=== PATIENT | female | born 1935 | race Hispanic/Latino ===

== ENCOUNTER → 2021-09-07 | Outpatient (CLI) | payer MEDICARE ==
[~2021-09-07] MED LIST: ARICEPT5 MG PO; ASPIR 8181 MG PO; BYSTOLIC10 MG PO; CALCIUM PO; CENTRUM SILVER1 EAC3 PO; DEXILANT60 MG PO; FISH OIL 1,0001 EAC2 PO; LIPITOR10 MG PO; LOVASTATIN; LYRICA50 MG PO; METHYLPRED4 MG; PANTOPRAZOLE SO40 MG PO; PROLIA60 MG/1 ML INJ; TRAMADOL HCL50 MG; TURMERIC538 MG PO; VIT D3 PO; Z.0.BYSTOLIC10 MG; Z.0.NEXIUM40 M1; Z.0.ZITHROMAX250 MG; Z.0.ZOLOFT50 MG PO; [UNRECOGNIZED DRUG - OTHER]
== END ==
LOC: RAD 10:30
PROVIDERS: ATTEND Family Medicine
DX: J81.0 Acute pulmonary edema (principal)
CPT/HCPCS: 71046

== ENCOUNTER → 2021-09-14 | Outpatient (CLI) | payer MEDICARE | LOC: RAD 09:41 | PROVIDERS: ATTEND Nurse Practitioner Family | DX: R50.9 Fever, unspecified (principal); R22.43 Localized swelling, mass and lump, lower limb, bilateral | CPT/HCPCS: 71046 ==

== ENCOUNTER → 2021-11-13 | Outpatient (CLI) | payer MEDICARE | LOC: MRI 07:24 | PROVIDERS: ATTEND Physician Assistant | DX: M19.012 Primary osteoarthritis, left shoulder (principal); M25.812 Other specified joint disorders, left shoulder ==

== ENCOUNTER 2021-12-07 18:33 | Inpatient (IN) | payer MEDICARE, OTHER ==
[~2021-12-07] VITALS: Ht 152.4 cm; Wt 69.9 kg
[2021-12-07] MEDS ORDERED: SODIUM CHLORIDE 0.9% 1000ML 1,000 ML IV ONE ×2 (19:15→20:15)
[2021-12-07] MEDS ORDERED: SODIUM CHLORIDE FLUSH 10 ML SYR INJ PRN (19:30)
[2021-12-07] MEDS ORDERED: ONDANSETRON HCL INJ 2MG/ML 2ML 2 MG/ML VIAL IV PRN (19:30)
[2021-12-07 19:52] LABS: BASOPHILS # (AUTO) 0.1 (0.0-0.1); BASOPHILS % 0.4 % (0.0-1.0); EOSINOPHILS # (AUTO) 0.2 (0.0-0.4); EOSINOPHILS % 1.3 % (0.0-6.0); HEMATOCRIT 23.8 % (34.2-44.1); HEMOGLOBIN 7.2 g/dL (12.0-16.0); LYMPHOCYTES # (AUTO) 2.3 (1.0-3.2); MEAN CORPUSCULAR HEMOGLOBIN 30.6 pg (28-32); MEAN CORPUSCULAR HGB CONC 30.3 g/dL (31-35); MEAN CORPUSCULAR VOLUME 101.3 fL (81-99); MONOCYTES # (AUTO) 0.7 (0.2-0.8); MONOCYTES % 5.6 % (4.4-11.3); NEUTROPHILS # (AUTO) 9.9 (2.1-6.9); NEUTROPHILS % 75.2 % (38.7-80.0); PLATELET COUNT 393 x10e3/uL (140-360); RED BLOOD COUNT 2.35 x10e6/uL (3.6-5.1); RED CELL DISTRIBUTION WIDTH 13.6 % (11.7-14.4)
[2021-12-07 20:05] LABS: ALBUMIN 2.8 g/dL (3.5-5.0); ALBUMIN/GLOBULIN RATIO 0.8 (0.8-2.0); ANION GAP 13.8 mmol/L (8-16); CREATININE, SERUM 1.02 mg/dL (0.57-1.11); POTASSIUM 3.8 mmol/L (3.5-5.1)
[2021-12-07] MEDS ORDERED: CEFTRIAXONE 1 GM VIAL IM ONE (20:15)
[2021-12-07 21:30] LABS: CLARITY,URINE CLEAR (CLEAR); COLOR,URINE YELLOW (YELLOW); KETONES,URINE NEGATIVE (NEGATIVE); LEUKOCYTE ESTERASE ,URINE NEGATIVE (NEGATIVE); NITRITE,URINE NEGATIVE (NEGATIVE); PROTEIN,URINE DIPSTICK NEGATIVE (NEGATIVE); URINE UROBILINOGEN 0.2 mg/dL (0.2 - 1)
[2021-12-07 21:53] LABS: BACTERIA,URINE RARE /HPF; EPITHELIAL CELLS,URINE FEW /LPF; RBC,URINE 0-5 /HPF (0-5); WBC,URINE (MAN) 0-5 /HPF (0-5)
[2021-12-08] VITALS (10 sets, daily range): BP systolic 138–153; BP diastolic 63–86
[2021-12-08] MEDS ORDERED: PROPRANOLOL HCL10 MG PO (00:12)
[2021-12-08] MEDS ORDERED: BENADRYL25 M1 PO (00:12)
[2021-12-08] MEDS ORDERED: NEURONTIN300 MG PO (00:12)
[2021-12-08] MEDS ORDERED: ATORVASTATIN CA20 MG PO (00:12)
[2021-12-08] MEDS ORDERED: FAMOTIDINE20 MG PO (00:12)
[2021-12-08] MEDS ORDERED: NAMENDA10 MG PO (00:12)
[2021-12-08] MEDS ORDERED: MELOXICAM7.5 MG PO (00:15)
[2021-12-08] MEDS ORDERED: NITROFURANTOIN100 MG PO (00:15)
[2021-12-08] MEDS ORDERED: DEXILANT60 MG (00:16)
[2021-12-08 01:18] LABS: HEMATOCRIT 21.3 % (34.2-44.1)
[2021-12-08 01:19] LABS: HEMOGLOBIN 6.5 g/dL (12.0-16.0)
[2021-12-08] MEDS ORDERED: FUROSEMIDE INJ 10 MG/ML 2 ML VIAL IV PRN ×4 (01:30→15:15)
[2021-12-08] MEDS ORDERED: SODIUM CHLORIDE 0.9% 250ML 250 ML IV ONE (01:30)
[2021-12-08] MEDS: NEBIVOLOL 10 MG TAB PO SCH (09:22)
[2021-12-08] MEDS: MEMANTINE 10 MG TAB PO SCH (09:23)
[2021-12-08] MEDS ORDERED: SODIUM CHLORIDE 0.9% 250ML 250 ML ONE (10:55)
[2021-12-08 16:06] LABS: HEMATOCRIT 34.5 % (34.2-44.1); HEMOGLOBIN 11.2 g/dL (12.0-16.0)
[2021-12-08 16:22] LABS: % IRON SATURATION 29 % (15-50); IRON 78 ug/dL (50-170); TOTAL IRON BINDING CAPACITY 266 ug/dL (261-478); TRANSFERRIN 190 mg/dL (180-382)
[2021-12-08] MEDS: ATORVASTATIN 20 MG TAB PO SCH (21:00)
[2021-12-08] MEDS: DONEPEZIL HCL 5 MG TAB PO SCH (21:00)
[2021-12-09] VITALS (8 sets, daily range): BP systolic 119–159; BP diastolic 55–85
[2021-12-09 01:32] LABS: % IRON SATURATION 17 % (15-50); IRON 44 ug/dL (50-170); TOTAL IRON BINDING CAPACITY 253 ug/dL (261-478); TRANSFERRIN 181 mg/dL (180-382)
[2021-12-09] MEDS ORDERED: PROMETHAZINE 12.5MG/ NACL 0.9% 12.5 MG/50 ML BAG IV ONE (04:15)
[2021-12-09 05:28] LABS: BASOPHILS # (AUTO) 0.1 (0.0-0.1); BASOPHILS % 0.4 % (0.0-1.0); EOSINOPHILS # (AUTO) 0.1 (0.0-0.4); EOSINOPHILS % 0.4 % (0.0-6.0); HEMATOCRIT 37.3 % (34.2-44.1); HEMOGLOBIN 12.1 g/dL (12.0-16.0); LYMPHOCYTES # (AUTO) 2.3 (1.0-3.2); LYMPHOCYTES % 17.1 % (18.0-39.1); MEAN CORPUSCULAR HEMOGLOBIN 30.6 pg (28-32); MEAN CORPUSCULAR HGB CONC 32.4 g/dL (31-35); MEAN CORPUSCULAR VOLUME 94.4 fL (81-99); MONOCYTES # (AUTO) 0.6 (0.2-0.8); MONOCYTES % 4.6 % (4.4-11.3); NEUTROPHILS # (AUTO) 10.3 (2.1-6.9); PLATELET COUNT 321 x10e3/uL (140-360); RED BLOOD COUNT 3.95 x10e6/uL (3.6-5.1); RED CELL DISTRIBUTION WIDTH 15.4 % (11.7-14.4)
[2021-12-09] MEDS: MEMANTINE 10 MG TAB PO SCH (08:20)
[2021-12-09] MEDS: NEBIVOLOL 10 MG TAB PO SCH (08:20)
[2021-12-09] MEDS: IRON SUCROSE 100 MG in SODIUM CHLORIDE 0.9% 100 ML 100 ML IV SCH (09:04)
[2021-12-09] MEDS ORDERED: ACETAMINOPHEN 325 MG TAB PO PRN (19:45)
[2021-12-09] MEDS: DONEPEZIL HCL 5 MG TAB PO SCH (20:30)
[2021-12-09] MEDS: MELATONIN 3 MG TAB PO SCH (20:30)
[2021-12-09] MEDS: ATORVASTATIN 20 MG TAB PO SCH (20:30)
[2021-12-09] MEDS: METOCLOPRAMIDE HCL 10 MG/2ML VIAL IV ONE ×2 (20:31→21:50)
[2021-12-10] VITALS (8 sets, daily range): BP systolic 136–164; BP diastolic 56–78
[2021-12-10] MEDS: METOCLOPRAMIDE HCL 10 MG/2ML VIAL IV SCH ×5 (02:25→23:29)
[2021-12-10 06:41] LABS: BASOPHILS # (AUTO) 0.1 (0.0-0.1); BASOPHILS % 0.5 % (0.0-1.0); EOSINOPHILS # (AUTO) 0.1 (0.0-0.4); EOSINOPHILS % 0.6 % (0.0-6.0); HEMATOCRIT 39.4 % (34.2-44.1); HEMOGLOBIN 12.5 g/dL (12.0-16.0); LYMPHOCYTES # (AUTO) 1.4 (1.0-3.2); LYMPHOCYTES % 14.1 % (18.0-39.1); MEAN CORPUSCULAR HEMOGLOBIN 30.6 pg (28-32); MEAN CORPUSCULAR HGB CONC 31.7 g/dL (31-35); MEAN CORPUSCULAR VOLUME 96.3 fL (81-99); MONOCYTES # (AUTO) 0.7 (0.2-0.8); MONOCYTES % 6.9 % (4.4-11.3); NEUTROPHILS # (AUTO) 7.7 (2.1-6.9); NEUTROPHILS % 77.5 % (38.7-80.0); PLATELET COUNT 244 x10e3/uL (140-360); RED BLOOD COUNT 4.09 x10e6/uL (3.6-5.1); RED CELL DISTRIBUTION WIDTH 15.4 % (11.7-14.4)
[2021-12-10] MEDS ORDERED: METOPROLOL TARTRATE INJ 1 MG/ML VIAL IV ONE (07:15)
[2021-12-10 07:25] LABS: ANION GAP 15.8 mmol/L (8-16); CALCIUM 8.9 mg/dL (8.4-10.2); CREATININE, SERUM 0.74 mg/dL (0.57-1.11); POTASSIUM 3.8 mmol/L (3.5-5.1)
[2021-12-10] MEDS ORDERED: METOPROLOL TARTRATE INJ 1 MG/ML VIAL ONE (07:26)
[2021-12-10] MEDS ORDERED: METOPROLOL SUCCINATE 25 MG TAB XL PO ONE (07:30)
[2021-12-10] MEDS ORDERED: METOPROLOL TARTRATE 25 MG TAB PO ONE (07:45)
[2021-12-10] MEDS: NEBIVOLOL 10 MG TAB PO SCH (09:00)
[2021-12-10] MEDS: MEMANTINE 10 MG TAB PO SCH (09:00)
[2021-12-10] MEDS: IRON SUCROSE 100 MG in SODIUM CHLORIDE 0.9% 100 ML 100 ML IV SCH (09:00)
[2021-12-10] MEDS ORDERED: DIGOXIN INJ 0.25 MG/ML 2 ML AMP IV ONE (09:30)
[2021-12-10] MEDS ORDERED: METOPROLOL TARTRATE 50 MG TAB PO ONE (09:30)
[2021-12-10] MEDS ORDERED: METOPROLOL SUCCINATE 25 MG TAB XL PO SCH (12:00)
[2021-12-10] MEDS ORDERED: METOPROLOL TARTRATE 50 MG TAB PO SCH (12:00)
[2021-12-10] MEDS: METOPROLOL TARTRATE 50 MG TAB PO SCH ×3 (15:30→23:29)
[2021-12-10] MEDS: ATORVASTATIN 20 MG TAB PO SCH (22:00)
[2021-12-10] MEDS: DONEPEZIL HCL 5 MG TAB PO SCH (22:00)
[2021-12-10] MEDS: MELATONIN 3 MG TAB PO SCH (22:00)
[2021-12-11] VITALS (7 sets, daily range): BP systolic 127–169; BP diastolic 56–91
[2021-12-11] MEDS: METOCLOPRAMIDE HCL 10 MG/2ML VIAL IV SCH ×4 (05:11→23:13)
[2021-12-11] MEDS: METOPROLOL TARTRATE 50 MG TAB PO SCH ×2 (05:11→17:00)
[2021-12-11 05:36] LABS: BASOPHILS # (AUTO) 0.1 (0.0-0.1); BASOPHILS % 0.6 % (0.0-1.0); EOSINOPHILS # (AUTO) 0.1 (0.0-0.4); HEMATOCRIT 39.5 % (34.2-44.1); HEMOGLOBIN 12.6 g/dL (12.0-16.0); LYMPHOCYTES # (AUTO) 1.5 (1.0-3.2); LYMPHOCYTES % 10.6 % (18.0-39.1); MEAN CORPUSCULAR HEMOGLOBIN 30.4 pg (28-32); MEAN CORPUSCULAR HGB CONC 31.9 g/dL (31-35); MEAN CORPUSCULAR VOLUME 95.2 fL (81-99); MONOCYTES # (AUTO) 0.9 (0.2-0.8); MONOCYTES % 6.2 % (4.4-11.3); NEUTROPHILS # (AUTO) 11.2 (2.1-6.9); NEUTROPHILS % 80.9 % (38.7-80.0); PLATELET COUNT 356 x10e3/uL (140-360); RED BLOOD COUNT 4.15 x10e6/uL (3.6-5.1)
[2021-12-11 05:51] LABS: ALBUMIN 2.8 g/dL (3.5-5.0); ALBUMIN/GLOBULIN RATIO 0.9 (0.8-2.0); CALCIUM 8.9 mg/dL (8.4-10.2); CREATININE, SERUM 0.72 mg/dL (0.57-1.11)
[2021-12-11] MEDS: MEMANTINE 10 MG TAB PO SCH (08:51)
[2021-12-11] MEDS: IRON SUCROSE 100 MG in SODIUM CHLORIDE 0.9% 100 ML 100 ML IV SCH (09:00)
[2021-12-11] MEDS: AMIODARONE HCL 200 MG TAB PO SCH ×2 (09:00→17:46)
[2021-12-11] MEDS: POTASSIUM CHLORIDE 20MEQ/100ML 100 ML IV SCH ×4 (09:15→19:57)
[2021-12-11] MEDS ORDERED: PROPOFOL IV EMULSION 10 MG/ML 20 ML VIAL ONE (12:05)
[2021-12-11] MEDS ORDERED: ONDANSETRON HCL 4 MG ORAL DISINTEGRATING TAB PO PRN (12:30)
[2021-12-11] MEDS ORDERED: SODIUM CHLORIDE 0.9% 1000ML 1,000 ML ONE (17:38)
[2021-12-11] MEDS: ATORVASTATIN 20 MG TAB PO SCH (20:27)
[2021-12-11] MEDS: DONEPEZIL HCL 5 MG TAB PO SCH (20:27)
[2021-12-11] MEDS: MELATONIN 3 MG TAB PO SCH (20:27)
[2021-12-12] VITALS: BP 135/73
[2021-12-12] MEDS: METOCLOPRAMIDE HCL 10 MG/2ML VIAL IV SCH (05:42)
[2021-12-12 06:37] VITALS: BP 158/74
[2021-12-12 07:53] VITALS: BP 136/64
[2021-12-12 07:57] VITALS: BP 147/64
[2021-12-12 08:07] VITALS: BP 147/64
[2021-12-12] MEDS: MEMANTINE 10 MG TAB PO SCH (08:42)
[2021-12-12] MEDS: AMIODARONE HCL 200 MG TAB PO SCH (08:42)
[2021-12-12] MEDS: METOPROLOL TARTRATE 50 MG TAB PO SCH (08:42)
[2021-12-12] MEDS: IRON SUCROSE 100 MG in SODIUM CHLORIDE 0.9% 100 ML 100 ML IV SCH (09:00)
== END 2021-12-12 09:14 | disposition home or self-care (01) | DRG 871 ==
LOC: ER 18:42 → ERHOLD 20:17 → MED/SURG2 23:00 → OBSVTOIN 12-09 08:00
PROVIDERS: ADMIT Family Medicine; ATTEND Family Medicine
PROC: 3E03329 Introduction of Other Anti-infective into Peripheral Vein, Percutaneous Approach (ICD-10-PCS; 2021-12-07)
PROC: 30233N1 Transfusion of Nonautologous Red Blood Cells into Peripheral Vein, Percutaneous Approach (ICD-10-PCS; principal; 2021-12-08)
PROC: 0DB68ZX Excision of Stomach, Via Natural or Artificial Opening Endoscopic, Diagnostic (ICD-10-PCS; 2021-12-11)
PROC: 0DB78ZX Excision of Stomach, Pylorus, Via Natural or Artificial Opening Endoscopic, Diagnostic (ICD-10-PCS; 2021-12-11)
DX: A41.9 Sepsis, unspecified organism (principal); K29.71 Gastritis, unspecified, with bleeding; K20.91 Esophagitis, unspecified with bleeding; E87.2 Acidosis; N39.0 Urinary tract infection, site not specified; D62 Acute posthemorrhagic anemia; E78.5 Hyperlipidemia, unspecified; F03.90 Unspecified dementia, unspecified severity, without behavioral disturbance, psychotic disturbance, mood disturbance, and anxiety; I12.9 Hypertensive chronic kidney disease with stage 1 through stage 4 chronic kidney disease, or unspecified chronic kidney disease; N18.9 Chronic kidney disease, unspecified; I48.0 Paroxysmal atrial fibrillation; E78.00 Pure hypercholesterolemia, unspecified; K21.9 Gastro-esophageal reflux disease without esophagitis; G60.3 Idiopathic progressive neuropathy; M47.816 Spondylosis without myelopathy or radiculopathy, lumbar region; E87.6 Hypokalemia; K44.9 Diaphragmatic hernia without obstruction or gangrene; Z20.822 Contact with and (suspected) exposure to COVID-19
CPT/HCPCS: 36415; 43239; 71045; 80048; 80053; 81001; 82270; 82607; 82746; 83540; 83605; 84443; 84466; 85014; 85018; 85025; 86850; 86900; 86920; 87040; 87086; 87400; 88304; 88305; 88312; 93005; 93306; 94799; 99251; 99284; G0378; J0696; J1160; J1756; J1940; J2405; J2550; J2765; J3480; J7030; J7050; P9016

== ENCOUNTER → 2022-03-26 | Outpatient (CLI) | payer MEDICARE, OTHER ==
[~2022-03-26] MED LIST changes: +ATORVASTATIN CA20 MG PO; +BENADRYL25 M1 PO; +DEXILANT60 MG; +FAMOTIDINE20 MG PO; +MELOXICAM7.5 MG PO; +NAMENDA10 MG PO; +NEURONTIN300 MG PO; +NITROFURANTOIN100 MG PO; +PROPRANOLOL HCL10 MG PO
== END ==
LOC: RAD 09:22
PROVIDERS: ATTEND Nurse Practitioner Family
DX: R22.42 Localized swelling, mass and lump, left lower limb (principal)
CPT/HCPCS: 93971

== ENCOUNTER 2022-09-12 08:56 | Emergency (ER) | payer MEDICARE, OTHER ==
[~2022-09-12] VITALS: Ht 304.8 cm; Wt 69.9 kg
[2022-09-12 09:26] LABS: BASOPHILS # (AUTO) 0.1 (0.0-0.1); BASOPHILS % 0.4 % (0.0-1.0); EOSINOPHILS # (AUTO) 0.3 (0.0-0.4); EOSINOPHILS % 2.5 % (0.0-6.0); HEMATOCRIT 36.7 % (34.2-44.1); HEMOGLOBIN 12.1 g/dL (12.0-16.0); LYMPHOCYTES # (AUTO) 1.5 (1.0-3.2); LYMPHOCYTES % 12.4 % (18.0-39.1); MEAN CORPUSCULAR HEMOGLOBIN 30.2 pg (28-32); MEAN CORPUSCULAR VOLUME 91.5 fL (81-99); MONOCYTES # (AUTO) 0.8 (0.2-0.8); MONOCYTES % 6.8 % (4.4-11.3); NEUTROPHILS # (AUTO) 9.3 (2.1-6.9); NEUTROPHILS % 77.6 % (38.7-80.0); PLATELET COUNT 240 x10e3/uL (140-360); RED BLOOD COUNT 4.01 x10e6/uL (3.6-5.1); RED CELL DISTRIBUTION WIDTH 13.6 % (11.7-14.4)
[2022-09-12 09:56] LABS: ALBUMIN 3.5 g/dL (3.5-5.0); ALBUMIN/GLOBULIN RATIO 1.2 (0.8-2.0); ANION GAP 12.3 mmol/L (8-16); CREATININE, SERUM 0.82 mg/dL (0.57-1.11); POTASSIUM 3.3 mmol/L (3.5-5.1)
[2022-09-12] MEDS ORDERED: SINGULAIR10 MG PO (10:30)
[2022-09-12] MEDS ORDERED: ZYRTEC10 MG PO (10:30)
[2022-09-12 11:13] LABS: CREATINE KINASE MB 1.7 ng/mL (0-5.0)
[2022-09-12 12:13] VITALS: BP 158/83
== END 2022-09-12 12:09 | disposition home or self-care (01) ==
LOC: ER 09:06
DX: R05.9 Cough, unspecified (principal); R09.89 Other specified symptoms and signs involving the circulatory and respiratory systems; R09.81 Nasal congestion; Z20.822 Contact with and (suspected) exposure to COVID-19
CPT/HCPCS: 36415; 71045; 80053; 82550; 82553; 83880; 84484; 85025; 99284; U0002

== ENCOUNTER → 2022-10-17 | Outpatient (CLI) | payer MEDICARE, OTHER ==
[~2022-10-17] MED LIST changes: +IOPAMIDOL 370 MG/ML 100 ML INFUS..BTL INJ ONE; +SINGULAIR10 MG PO; +ZYRTEC10 MG PO
[2022-10-17 11:36] LABS: CREATININE, SERUM 0.87 mg/dL (0.57-1.11)
== END ==
LOC: CT 10:24
PROVIDERS: ATTEND Family Medicine
DX: M79.89 Other specified soft tissue disorders (principal)
CPT/HCPCS: 36415; 71260; 82565; 84520; Q9967

== ENCOUNTER 2022-11-14 10:53 | Inpatient (IN) | payer MEDICARE, OTHER ==
[~2022-11-14] VITALS: Ht 304.8 cm; Wt 69.9 kg
[~2022-11-14 10:53] MED LIST changes: -IOPAMIDOL 370 MG/ML 100 ML INFUS..BTL INJ ONE
[2022-11-14 11:26] LABS: BASOPHILS # (AUTO) 0.1 (0.0-0.1); BASOPHILS % 0.5 % (0.0-1.0); EOSINOPHILS # (AUTO) 0.2 (0.0-0.4); EOSINOPHILS % 1.3 % (0.0-6.0); HEMATOCRIT 34.5 % (34.2-44.1); HEMOGLOBIN 11.3 g/dL (12.0-16.0); LYMPHOCYTES % 15.8 % (18.0-39.1); MEAN CORPUSCULAR HEMOGLOBIN 30.8 pg (28-32); MEAN CORPUSCULAR HGB CONC 32.8 g/dL (31-35); MONOCYTES # (AUTO) 0.8 (0.2-0.8); MONOCYTES % 6.6 % (4.4-11.3); NEUTROPHILS # (AUTO) 9.5 (2.1-6.9); NEUTROPHILS % 75.5 % (38.7-80.0); PLATELET COUNT 274 x10e3/uL (140-360); RED BLOOD COUNT 3.67 x10e6/uL (3.6-5.1); RED CELL DISTRIBUTION WIDTH 12.5 % (11.7-14.4)
[2022-11-14 11:30] LABS: CLARITY,URINE CLEAR (CLEAR); COLOR,URINE YELLOW (YELLOW); KETONES,URINE NEGATIVE (NEGATIVE); LEUKOCYTE ESTERASE ,URINE NEGATIVE (NEGATIVE); NITRITE,URINE NEGATIVE (NEGATIVE); PROTEIN,URINE DIPSTICK NEGATIVE (NEGATIVE); URINE UROBILINOGEN 0.2 mg/dL (0.2 - 1)
[2022-11-14 11:59] LABS: ALBUMIN 3.5 g/dL (3.5-5.0); ALBUMIN/GLOBULIN RATIO 1.3 (0.8-2.0); CALCIUM 8.8 mg/dL (8.4-10.2); CREATININE, SERUM 0.95 mg/dL (0.57-1.11)
[2022-11-14 12:05] LABS: BACTERIA,URINE RARE /HPF; EPITHELIAL CELLS,URINE RARE /LPF; WBC,URINE (MAN) 0-5 /HPF (0-5)
[2022-11-14] MEDS ORDERED: ONDANSETRON HCL INJ 2MG/ML 2ML 2 MG/ML VIAL IV PRN (13:15)
[2022-11-14] MEDS ORDERED: SODIUM CHLORIDE FLUSH 10 ML SYR INJ PRN (13:15)
[2022-11-14 17:59] VITALS: BP 147/62; PULSE 76; RESP 21; TEMP 97.6; O2SAT 100
[2022-11-14 18:55] VITALS: BP 117/63; PULSE 74; RESP 18; O2SAT 100
[2022-11-14 19:09] VITALS: BP 117/63; PULSE 74; RESP 18; TEMP 97.7; O2SAT 100
[2022-11-14 20:30] VITALS: BP 145/68; PULSE 87; RESP 18; TEMP 98.7; O2SAT 99
[2022-11-14 22:29] VITALS: BP 145/68; PULSE 87; RESP 18; TEMP 98.7; O2SAT 99
[2022-11-15 06:01] LABS: MAGNESIUM 1.8 MG/DL (1.3-2.1)
[2022-11-15 06:53] LABS: PHOSPHORUS 2.9 MG/DL (2.3-4.7)
[2022-11-15 07:15] LABS: THYROID STIMULATING HORMONE 2.592 uIU/mL (0.350-4.940)
[2022-11-15 08:02] VITALS: BP 147/79; PULSE 93; RESP 18; TEMP 98.3; O2SAT 97
[2022-11-15] MEDS: MEMANTINE 10 MG TAB PO SCH (08:09)
[2022-11-15] MEDS: PANTOPRAZOLE SOD 40 MG TABEC PO SCH (08:09)
[2022-11-15] MEDS: SERTRALINE HCL 50 MG TAB PO SCH (08:09)
[2022-11-15] MEDS: PREGABALIN 50 MG CAP PO SCH ×2 (08:09→16:21)
[2022-11-15] MEDS: FAMOTIDINE 20 MG TAB PO SCH (08:09)
[2022-11-15] MEDS: ASPIRIN 81 MG CHEW TAB PO SCH (08:09)
[2022-11-15 08:49] VITALS: BP 147/79; PULSE 93; RESP 18; TEMP 98.3; O2SAT 97
[2022-11-15] MEDS ORDERED: ONDANSETRON HCL 4 MG ORAL DISINTEGRATING TAB PO PRN (10:00)
[2022-11-15] MEDS ORDERED: SODIUM CHLORIDE 0.9% 250ML 250 ML ONE (10:56)
[2022-11-15] MEDS ORDERED: IOPAMIDOL 370 MG/ML 100 ML INFUS..BTL INJ ONE (11:10)
[2022-11-15 11:23] VITALS: BP 182/93; PULSE 98; RESP 17; TEMP 98.1; O2SAT 98
[2022-11-15 16:06] VITALS: BP 134/66; PULSE 93; RESP 17; TEMP 98.1; O2SAT 99
[2022-11-15 20:00] VITALS: BP 170/84; PULSE 110; RESP 18; TEMP 98.2; O2SAT 100
[2022-11-15] MEDS ORDERED: PROPRANOLOL HCL10 MG PO (20:43)
[2022-11-15] MEDS ORDERED: DILTIAZEM 24HR120 M1 PO (20:43)
[2022-11-15] MEDS: ATORVASTATIN 20 MG TAB PO SCH (20:44)
[2022-11-15] MEDS: MONTELUKAST SODIUM 10 MG TAB PO SCH (20:45)
[2022-11-15] MEDS: DONEPEZIL HCL 5 MG TAB PO SCH (20:45)
[2022-11-16] VITALS (9 sets, daily range): BP systolic 134–162; BP diastolic 62–90; PULSE 90–110; RESP 17–20; TEMP 97.6–99; O2SAT 98–99
[2022-11-16] MEDS: MEMANTINE 10 MG TAB PO SCH (08:44)
[2022-11-16] MEDS: SERTRALINE HCL 50 MG TAB PO SCH (08:44)
[2022-11-16] MEDS: ASPIRIN 81 MG CHEW TAB PO SCH (08:44)
[2022-11-16] MEDS: PANTOPRAZOLE SOD 40 MG TABEC PO SCH (08:45)
[2022-11-16] MEDS: FAMOTIDINE 20 MG TAB PO SCH (08:46)
[2022-11-16] MEDS: PREGABALIN 50 MG CAP PO SCH ×2 (09:00→16:36)
[2022-11-16 09:54] LABS: BASOPHILS # (AUTO) 0.1 (0.0-0.1); BASOPHILS % 0.8 % (0.0-1.0); EOSINOPHILS # (AUTO) 0.1 (0.0-0.4); EOSINOPHILS % 1.4 % (0.0-6.0); HEMATOCRIT 39.1 % (34.2-44.1); HEMOGLOBIN 12.7 g/dL (12.0-16.0); LYMPHOCYTES # (AUTO) 2.5 (1.0-3.2); LYMPHOCYTES % 24.3 % (18.0-39.1); MEAN CORPUSCULAR HEMOGLOBIN 30.9 pg (28-32); MEAN CORPUSCULAR HGB CONC 32.5 g/dL (31-35); MEAN CORPUSCULAR VOLUME 95.1 fL (81-99); MONOCYTES # (AUTO) 0.6 (0.2-0.8); MONOCYTES % 5.5 % (4.4-11.3); NEUTROPHILS # (AUTO) 6.9 (2.1-6.9); NEUTROPHILS % 67.7 % (38.7-80.0); PLATELET COUNT 336 x10e3/uL (140-360); RED BLOOD COUNT 4.11 x10e6/uL (3.6-5.1); RED CELL DISTRIBUTION WIDTH 12.6 % (11.7-14.4)
[2022-11-16] MEDS: ATORVASTATIN 20 MG TAB PO SCH (20:27)
[2022-11-16] MEDS: MONTELUKAST SODIUM 10 MG TAB PO SCH (20:27)
[2022-11-16] MEDS: DONEPEZIL HCL 5 MG TAB PO SCH (20:27)
[2022-11-17 00:48] VITALS: BP 140/73; PULSE 105; RESP 18; TEMP 98.3; O2SAT 99
[2022-11-17 08:00] VITALS: BP 150/83; PULSE 105; RESP 18; TEMP 98; O2SAT 99
[2022-11-17 09:10] VITALS: BP 150/83; PULSE 105; RESP 21; TEMP 98; O2SAT 100
[2022-11-17] MEDS: SERTRALINE HCL 50 MG TAB PO SCH (09:44)
[2022-11-17] MEDS: ASPIRIN 81 MG CHEW TAB PO SCH (09:44)
[2022-11-17] MEDS: FAMOTIDINE 20 MG TAB PO SCH (09:44)
[2022-11-17] MEDS: MEMANTINE 10 MG TAB PO SCH (09:44)
[2022-11-17] MEDS: PREGABALIN 50 MG CAP PO SCH ×2 (09:45→16:14)
[2022-11-17] MEDS: PANTOPRAZOLE SOD 40 MG TABEC PO SCH (09:45)
[2022-11-17 12:00] VITALS: BP 160/97; PULSE 95; RESP 20; TEMP 97.6; O2SAT 100
[2022-11-17 16:00] VITALS: BP 145/89; PULSE 114; RESP 20; TEMP 98.1; O2SAT 100
[2022-11-17 20:00] VITALS: BP 144/81; PULSE 114; RESP 20; TEMP 98.1; O2SAT 100
[2022-11-17] MEDS: ATORVASTATIN 20 MG TAB PO SCH (20:11)
[2022-11-17] MEDS: MONTELUKAST SODIUM 10 MG TAB PO SCH (20:11)
[2022-11-17] MEDS: DONEPEZIL HCL 5 MG TAB PO SCH (20:11)
[2022-11-18] VITALS: BP 147/82; PULSE 105; RESP 20; TEMP 98; O2SAT 100
[2022-11-18 04:00] VITALS: BP 135/75; PULSE 100; RESP 18; TEMP 98.1; O2SAT 100
[2022-11-18 09:10] VITALS: BP 135/75; PULSE 100; RESP 18; TEMP 98.1; O2SAT 100
[2022-11-18] MEDS: SERTRALINE HCL 50 MG TAB PO SCH (10:53)
[2022-11-18] MEDS: PANTOPRAZOLE SOD 40 MG TABEC PO SCH (10:53)
[2022-11-18] MEDS: PREGABALIN 50 MG CAP PO SCH ×2 (10:53→17:56)
[2022-11-18] MEDS: ASPIRIN 81 MG CHEW TAB PO SCH (10:53)
[2022-11-18] MEDS: MEMANTINE 10 MG TAB PO SCH (10:53)
[2022-11-18] MEDS: FAMOTIDINE 20 MG TAB PO SCH (10:53)
[2022-11-18] MEDS ORDERED: QUETIAPINE FUMARATE 25 MG TAB PO SCH (17:00)
[2022-11-18 20:00] VITALS: BP 126/77; PULSE 105; RESP 18; TEMP 98.1; O2SAT 99
[2022-11-18] MEDS: MONTELUKAST SODIUM 10 MG TAB PO SCH (20:26)
[2022-11-18] MEDS: ATORVASTATIN 20 MG TAB PO SCH (20:26)
[2022-11-18] MEDS: DONEPEZIL HCL 5 MG TAB PO SCH (20:27)
[2022-11-18 23:45] VITALS: BP 126/77; PULSE 105; RESP 18; TEMP 98.1; O2SAT 99
[2022-11-18 23:52] VITALS: BP 147/74; PULSE 106; RESP 18; TEMP 98.4; O2SAT 96
[2022-11-19 04:00] VITALS: BP 127/75; PULSE 102; RESP 18; TEMP 98.9; O2SAT 99
[2022-11-19 09:05] VITALS: BP 127/75; PULSE 102; RESP 18; TEMP 98.9; O2SAT 99
[2022-11-19 09:06] VITALS: BP 140/80; PULSE 118; RESP 20; TEMP 98.1; O2SAT 98
[2022-11-19] MEDS: SERTRALINE HCL 50 MG TAB PO SCH (09:57)
[2022-11-19] MEDS: ASPIRIN 81 MG CHEW TAB PO SCH (09:57)
[2022-11-19] MEDS: MEMANTINE 10 MG TAB PO SCH (09:57)
[2022-11-19] MEDS: PANTOPRAZOLE SOD 40 MG TABEC PO SCH (09:57)
[2022-11-19] MEDS: PREGABALIN 50 MG CAP PO SCH (09:58)
[2022-11-19] MEDS: FAMOTIDINE 20 MG TAB PO SCH (09:58)
== END 2022-11-19 12:00 | disposition home or self-care (01) | DRG 57 ==
LOC: ER 10:59 → ERHOLD 13:14 → MED/SURG2 17:13
PROVIDERS: ADMIT Internal Medicine; ATTEND Internal Medicine
DX: G30.9 Alzheimer's disease, unspecified (principal); R44.3 Hallucinations, unspecified; Z68.1 Body mass index [BMI] 19.9 or less, adult; J21.9 Acute bronchiolitis, unspecified; G93.40 Encephalopathy, unspecified; F02.80 Dementia in other diseases classified elsewhere, unspecified severity, without behavioral disturbance, psychotic disturbance, mood disturbance, and anxiety; K83.8 Other specified diseases of biliary tract; I11.0 Hypertensive heart disease with heart failure; I50.9 Heart failure, unspecified; R29.6 Repeated falls; I48.91 Unspecified atrial fibrillation; E78.00 Pure hypercholesterolemia, unspecified; F32.9 Major depressive disorder, single episode, unspecified; R63.0 Anorexia; G62.9 Polyneuropathy, unspecified; Z90.49 Acquired absence of other specified parts of digestive tract; Z20.822 Contact with and (suspected) exposure to COVID-19; Z79.82 Long term (current) use of aspirin
CPT/HCPCS: 36415; 70450; 70551; 71045; 71260; 74177; 74181; 80053; 81001; 82607; 82948; 83735; 84100; 84443; 84484; 85025; 86039; 86140; 86592; 87086; 93005; 95819; 99284; J0696; J7050; Q9967